=== PATIENT | female | born 1950 | race Caucasian/White ===

== ENCOUNTER 2020-01-18 17:15 | Inpatient (IN) | payer MEDICARE, OTHER ==
[2020-01-18 17:26] VITALS: BMI 27.4
[2020-01-18] MEDS ORDERED: SODIUM CHLORIDE 2,041 ML IV ONE (17:41)
[2020-01-18] MEDS ORDERED: ACETAMINOPHEN 1000 MG/100 ML VIAL (NON FORMULARY) IVPB ONE (17:41)
[2020-01-18] MEDS ORDERED: ACETAMINOPHEN INJECTION 100 ML IVPB ONE (17:56)
[2020-01-18] MEDS ORDERED: DEXAMETHASONE SOD PHOSPHATE 20 MG/5 ML VIAL IVPB ONE (18:10)
[2020-01-18] MEDS ORDERED: DEXAMETHASONE SOD PHOSPHATE 10 MG/1 ML VIAL ONE (18:24)
[2020-01-18] MEDS ORDERED: HYDROXYCHLOROQUINE SO4 200 MG TABLET (FP) PO ONE (18:27)
[2020-01-18] MEDS ORDERED: AZITHROMYCIN IVPB 500 MG in DEXTROSE 5%-WATER - 250 ML IVPB ONE (18:28)
[2020-01-18 19:10] LABS: VENOUS BASE EXCESS -0.8 meq/l (-2-2); VENOUS PC02 36.6 mmHg (38-52); VENOUS PH 7.41 (7.31-7.41); VENOUS PO2 51.9 mmHg (28-48)
[2020-01-18 19:12] LABS: BASO % 0.2 % (0-2.0); HEMATOCRIT 38.7 % (32.4-45.2); HEMOGLOBIN 12.7 GM/dL (10.7-15.3); LYMPH % 21.4 % (8-40); MCH 31.6 pg (25.7-33.7); MCHC 32.9 g/dl (32.0-36.0); MEAN CELL VOLUME 96.1 fl (80-96); MEAN PLT VOLUME 10.6 fl (7.5-11.1); MONO % 8.6 % (3.8-10.2); NEUT % 69.8 % (42.8-82.8); PLATELET COUNT 159 K/MM3 (134-434); RBC 4.02 M/mm3 (3.60-5.2); RDW 13.7 % (11.6-15.6); WHITE BLOOD COUNT 5.2 K/mm3 (4.0-10.0)
[2020-01-18 19:18] LABS: INR 1.13 (0.83-1.09); PROTHROMBIN TIME (PATIENT) 13.3 SEC (9.7-13.0)
[2020-01-18 19:21] LABS: ACTIVATED PTT 34.5 SECONDS (25.2-36.5)
[2020-01-18] MEDS ORDERED: AZITHROMYCIN IVPB 500 MG/250 ML BAG IVPB ONE (19:34)
[2020-01-18] MEDS ORDERED: HYDROXYCHLOROQUINE SO4 200 MG TABLET (FP) ONE (19:34)
[2020-01-18] MEDS: ALBUTEROL SO4 HFA INHALER IH PRN (19:35)
[2020-01-18 19:43] LABS: ALBUMIN 3.1 g/dl (3.4-5.0); ALK PHOS 152 U/L (45-117); ANION GAP 10 MMOL/L (8-16); BILIRUBIN,TOTAL 0.2 mg/dL (0.2-1); BLOOD UREA NITROGEN 12.9 mg/dL (7-18); CALCIUM 8.1 mg/dL (8.5-10.1); CHLORIDE 105 mmol/L (98-107); CO2 22 mmol/L (21-32); CREATININE 0.8 mg/dL (0.55-1.3); GLUCOSE,RANDOM 101 mg/dL (74-106); POTASSIUM 3.8 mmol/L (3.5-5.1); SGOT/AST 59 U/L (15-37); SGPT/ALT 37 U/L (13-61); SODIUM 137 mmol/L (136-145); TOT PROT 7.1 g/dl (6.4-8.2)
[2020-01-18] MEDS: DEXTROSE 5%-NORMAL SALINE 1,000 ML IV SCH (19:50)
[2020-01-18] MEDS ORDERED: AZTREONAM 1 GM VIAL (RESTRICTED TO ID) IVPB ONE (20:14)
[2020-01-18] MEDS ORDERED: AZTREONAM 1 GM VIAL (RESTRICTED TO ID) ONE (22:35)
[2020-01-18] MEDS ORDERED: VANCOMYCIN HCL 1,500 MG in DEXTROSE 5%-WATER - 250 ML IVPB SCH (22:45)
[2020-01-18 23:03] LABS: ARTERIAL BLD GAS O2 SATURATION 97.6 % (95-98); ARTERIAL BLOOD GAS BASE EXCESS -1.7 meq/l (-2-2); ARTERIAL BLOOD GAS PCO2 35.2 mmHg (35-45); ARTERIAL BLOOD GAS PO2 106 mmHg (80-100); ARTERIAL BLOOD GAS pH 7.41 (7.35-7.45)
[2020-01-18] MEDS ORDERED: VANCOMYCIN 1 GRAM (PRE-DOCKED) 1,000 MG/250 ML BAG IVPB ONE (23:23)
[2020-01-18] MEDS ORDERED: VANCOMYCIN 500 MG VIAL (RESTRICTED TO ID ONLY) ONE (23:23)
[2020-01-19 05:55] LABS: BASO % 0.2 % (0-2.0); HEMATOCRIT 36.8 % (32.4-45.2); HEMOGLOBIN 12.3 GM/dL (10.7-15.3); LYMPH % 28.6 % (8-40); MCH 31.9 pg (25.7-33.7); MCHC 33.3 g/dl (32.0-36.0); MEAN CELL VOLUME 95.9 fl (80-96); MEAN PLT VOLUME 9.8 fl (7.5-11.1); MONO % 5.4 % (3.8-10.2); NEUT % 65.8 % (42.8-82.8); PLATELET COUNT 161 K/MM3 (134-434); RBC 3.84 M/mm3 (3.60-5.2); RDW 13.5 % (11.6-15.6); WHITE BLOOD COUNT 3.5 K/mm3 (4.0-10.0)
[2020-01-19 06:28] LABS: ALBUMIN 2.8 g/dl (3.4-5.0); BILIRUBIN,TOTAL 0.3 mg/dL (0.2-1); BLOOD UREA NITROGEN 16.7 mg/dL (7-18); CALCIUM 7.5 mg/dL (8.5-10.1); PHOSPHOROUS 3.6 mg/dL (2.5-4.9); POTASSIUM 3.8 mmol/L (3.5-5.1); TOT PROT 6.8 g/dl (6.4-8.2)
[2020-01-19] MEDS ORDERED: HYDROXYCHLOROQUINE SO4 200 MG TABLET (FP) PO SCH ×2 (07:00→11:45)
[2020-01-19] MEDS ORDERED: AZITHROMYCIN 250 MG TABLET PO ONE (07:00)
[2020-01-19] MEDS ORDERED: ACETAMINOPHEN 325 MG TABLET (FP) ONE ×2 (08:24→23:15)
[2020-01-19] MEDS ORDERED: AZITHROMYCIN 250 MG TABLET ONE (08:25)
[2020-01-19] MEDS ORDERED: ENOXAPARIN NA (PORCINE) 40 MG/0.4 ML DISP.SYRIN SQ ONE (08:25)
[2020-01-19] MEDS: ACETAMINOPHEN 325 MG TABLET (FP) PO PRN (09:17)
[2020-01-19] MEDS: ENOXAPARIN NA (PORCINE) 40 MG/0.4 ML DISP.SYRIN SQ SCH (09:17)
[2020-01-19] MEDS ORDERED: MAGNESIUM SULF 50% (8.12 MEQ/2 ML-1 GM VIAL) IVPB ONE (10:22)
[2020-01-19] MEDS ORDERED: MAGNESIUM 1GM/D5W - 2 GM/200 ML IVPB IVPB ONE (11:25)
[2020-01-19] MEDS ORDERED: PT OWN MED DRAWER 7, Y5N ONE ×2 (11:25→16:16)
[2020-01-19] MEDS ORDERED: VANCOMYCIN HCL 1,500 MG in DEXTROSE 5%-WATER - 500 ML IVPB ONE (12:00)
[2020-01-19] MEDS ORDERED: AZTREONAM 1 GM VIAL (RESTRICTED TO ID) ONE ×2 (12:02→16:16)
[2020-01-19] MEDS ORDERED: HYDROXYCHLOROQUINE SO4 200 MG TABLET (FP) ONE ×2 (12:02→23:15)
[2020-01-19] MEDS ORDERED: VANCOMYCIN 1 GRAM (PRE-DOCKED) 1,000 MG/250 ML BAG IVPB ONE ×2 (12:02→22:46)
[2020-01-19] MEDS: AZTREONAM 2 GM in DEXTROSE 5%-WATER 100 ML IVPB SCH ×2 (12:08→18:13)
[2020-01-19] MEDS: VANCOMYCIN 1 GRAM (PRE-DOCKED) 1,000 MG/250 ML BAG IVPB SCH ×2 (12:45→23:16)
[2020-01-19 16:16] LABS: HIV INTERPRETATION NEGATIVE (NEGATIVE)
[2020-01-19] MEDS ORDERED: ATORVASTATIN CA 40 MG TABLET (FP) ONE (22:46)
[2020-01-19] MEDS: ATORVASTATIN CA 40 MG TABLET (FP) PO SCH (23:16)
[2020-01-19] MEDS: HYDROXYCHLOROQUINE SO4 200 MG TABLET (FP) PO SCH (23:29)
[2020-01-20] MEDS: DEXTROSE 5%-NORMAL SALINE 1,000 ML IV SCH ×2 (01:42→21:55)
[2020-01-20] MEDS: AZTREONAM 2 GM in DEXTROSE 5%-WATER 100 ML IVPB SCH ×3 (01:42→17:58)
[2020-01-20] MEDS: ACETAMINOPHEN 325 MG TABLET (FP) PO PRN ×2 (01:47→13:18)
[2020-01-20 08:12] LABS: BASO % 0.1 % (0-2.0); HEMATOCRIT 35.7 % (32.4-45.2); HEMOGLOBIN 12.1 GM/dL (10.7-15.3); MCH 32.2 pg (25.7-33.7); MCHC 33.7 g/dl (32.0-36.0); MEAN CELL VOLUME 95.5 fl (80-96); MEAN PLT VOLUME 10.2 fl (7.5-11.1); NEUT % 80.9 % (42.8-82.8); PLATELET COUNT 174 K/MM3 (134-434); RBC 3.74 M/mm3 (3.60-5.2); RDW 13.5 % (11.6-15.6); WHITE BLOOD COUNT 12.3 K/mm3 (4.0-10.0)
[2020-01-20 08:52] LABS: ALBUMIN 2.7 g/dl (3.4-5.0); BILIRUBIN,TOTAL 0.3 mg/dL (0.2-1); BLOOD UREA NITROGEN 15.4 mg/dL (7-18); CALCIUM 7.9 mg/dL (8.5-10.1); CREATININE 0.9 mg/dL (0.55-1.3); POTASSIUM 3.4 mmol/L (3.5-5.1); TOT PROT 6.5 g/dl (6.4-8.2)
[2020-01-20 09:28] LABS: ERYTHROCYTE SEDIMENTATION RATE 67 mm/hr (0-30)
[2020-01-20] MEDS ORDERED: POTASSIUM CHLORIDE TABS 20 MEQ TABLET.ER (FP) PO ONE (09:44)
[2020-01-20] MEDS: AZITHROMYCIN 250 MG TABLET PO SCH (10:21)
[2020-01-20] MEDS: HYDROXYCHLOROQUINE SO4 200 MG TABLET (FP) PO SCH ×2 (10:21→21:55)
[2020-01-20] MEDS ORDERED: PT OWN MED DRAWER 7, Y5N ONE ×2 (11:09→21:37)
[2020-01-20] MEDS: ENOXAPARIN NA (PORCINE) 40 MG/0.4 ML DISP.SYRIN SQ SCH (12:17)
[2020-01-20] MEDS: VANCOMYCIN 1 GRAM (PRE-DOCKED) 1,000 MG/250 ML BAG IVPB SCH (12:21)
[2020-01-20] MEDS: ATORVASTATIN CA 40 MG TABLET (FP) PO SCH (21:55)
[2020-01-21] MEDS: VANCOMYCIN 1 GRAM (PRE-DOCKED) 1,000 MG/250 ML BAG IVPB SCH ×3 (00:25→23:24)
[2020-01-21] MEDS: AZTREONAM 2 GM in DEXTROSE 5%-WATER 100 ML IVPB SCH ×3 (01:43→18:25)
[2020-01-21] MEDS: ACETAMINOPHEN 325 MG TABLET (FP) PO PRN ×3 (01:45→22:26)
[2020-01-21 08:18] LABS: BASO % 0.1 % (0-2.0); HEMATOCRIT 32.5 % (32.4-45.2); HEMOGLOBIN 11.2 GM/dL (10.7-15.3); LYMPH % 14.9 % (8-40); MCH 32.5 pg (25.7-33.7); MCHC 34.4 g/dl (32.0-36.0); MEAN CELL VOLUME 94.5 fl (80-96); PLATELET COUNT 145 K/MM3 (134-434); RBC 3.44 M/mm3 (3.60-5.2); RDW 13.5 % (11.6-15.6); WHITE BLOOD COUNT 10.2 K/mm3 (4.0-10.0)
[2020-01-21 08:41] LABS: ALBUMIN 2.2 g/dl (3.4-5.0); BILIRUBIN,TOTAL 0.5 mg/dL (0.2-1); BLOOD UREA NITROGEN 14.2 mg/dL (7-18); CALCIUM 7.4 mg/dL (8.5-10.1); CREATININE 0.8 mg/dL (0.55-1.3); MAGNESIUM 1.8 mg/dL (1.8-2.4); POTASSIUM 3.3 mmol/L (3.5-5.1); TOT PROT 5.9 g/dl (6.4-8.2)
[2020-01-21] MEDS: HYDROXYCHLOROQUINE SO4 200 MG TABLET (FP) PO SCH ×2 (10:09→22:27)
[2020-01-21] MEDS: AZITHROMYCIN 250 MG TABLET PO SCH (11:28)
[2020-01-21] MEDS: ENOXAPARIN NA (PORCINE) 40 MG/0.4 ML DISP.SYRIN SQ SCH (11:28)
[2020-01-21] MEDS ORDERED: PT OWN MED DRAWER 7, Y5N ONE (11:32)
[2020-01-21] MEDS: ATORVASTATIN CA 40 MG TABLET (FP) PO SCH (22:26)
[2020-01-22] MEDS ORDERED: PT OWN MED DRAWER 7, Y5N ONE ×2 (01:06→09:26)
[2020-01-22] MEDS: AZTREONAM 2 GM in DEXTROSE 5%-WATER 100 ML IVPB SCH ×3 (01:16→17:28)
[2020-01-22 06:58] LABS: BASO % 0.1 % (0-2.0); EOS % 0.1 % (0-4.5); HEMATOCRIT 33.3 % (32.4-45.2); HEMOGLOBIN 11.5 GM/dL (10.7-15.3); LYMPH % 12.3 % (8-40); MCH 32.5 pg (25.7-33.7); MCHC 34.5 g/dl (32.0-36.0); MEAN CELL VOLUME 94.3 fl (80-96); MEAN PLT VOLUME 10.3 fl (7.5-11.1); MONO % 5.8 % (3.8-10.2); NEUT % 81.7 % (42.8-82.8); PLATELET COUNT 135 K/MM3 (134-434); RBC 3.53 M/mm3 (3.60-5.2); RDW 13.5 % (11.6-15.6)
[2020-01-22 07:34] LABS: ALBUMIN 2.1 g/dl (3.4-5.0); BILIRUBIN,TOTAL 0.6 mg/dL (0.2-1); BLOOD UREA NITROGEN 11.3 mg/dL (7-18); CALCIUM 7.5 mg/dL (8.5-10.1); CREATININE 0.6 mg/dL (0.55-1.3); MAGNESIUM 1.9 mg/dL (1.8-2.4); TOT PROT 5.6 g/dl (6.4-8.2)
[2020-01-22 08:11] LABS: POTASSIUM 2.9 mmol/L (3.5-5.1)
[2020-01-22] MEDS: ENOXAPARIN NA (PORCINE) 40 MG/0.4 ML DISP.SYRIN SQ SCH (10:51)
[2020-01-22] MEDS: HYDROXYCHLOROQUINE SO4 200 MG TABLET (FP) PO SCH (10:51)
[2020-01-22] MEDS: AZITHROMYCIN 250 MG TABLET PO SCH (10:51)
[2020-01-22] MEDS: VANCOMYCIN 1 GRAM (PRE-DOCKED) 1,000 MG/250 ML BAG IVPB SCH (12:29)
[2020-01-22] MEDS: POTASSIUM CHLORIDE TABS 20 MEQ TABLET.ER (FP) PO SCH ×4 (16:30→21:02)
[2020-01-22] MEDS: DEXTROSE 5%-NORMAL SALINE 1,000 ML IV SCH ×2 (16:55→19:45)
[2020-01-22] MEDS ORDERED: LOPERAMIDE HCL 2 MG CAPSULE PO PRN (18:42)
[2020-01-22] MEDS: ACETAMINOPHEN 325 MG TABLET (FP) PO PRN (19:09)
[2020-01-22 20:08] LABS: CALCIUM 7.9 mg/dL (8.5-10.1); CREATININE 0.6 mg/dL (0.55-1.3); POTASSIUM 3.7 mmol/L (3.5-5.1)
[2020-01-22] MEDS: ATORVASTATIN CA 40 MG TABLET (FP) PO SCH (21:02)
[2020-01-23] MEDS ORDERED: PT OWN MED DRAWER 7, Y5N ONE ×4 (01:36→17:58)
[2020-01-23] MEDS: DEXTROSE 5%-NORMAL SALINE 1,000 ML IV SCH (01:58)
[2020-01-23] MEDS: AZTREONAM 2 GM in DEXTROSE 5%-WATER 100 ML IVPB SCH ×3 (01:58→17:41)
[2020-01-23 07:59] LABS: BASO % 0.2 % (0-2.0); EOS % 1.1 % (0-4.5); HEMATOCRIT 32.4 % (32.4-45.2); HEMOGLOBIN 11.2 GM/dL (10.7-15.3); LYMPH % 11.3 % (8-40); MCH 32.4 pg (25.7-33.7); MCHC 34.5 g/dl (32.0-36.0); MEAN CELL VOLUME 93.9 fl (80-96); MONO % 9.6 % (3.8-10.2); NEUT % 77.8 % (42.8-82.8); PLATELET COUNT 160 K/MM3 (134-434); RBC 3.45 M/mm3 (3.60-5.2); RDW 13.5 % (11.6-15.6); WHITE BLOOD COUNT 6.4 K/mm3 (4.0-10.0)
[2020-01-23 08:24] LABS: BILIRUBIN,TOTAL 0.4 mg/dL (0.2-1); BLOOD UREA NITROGEN 10.4 mg/dL (7-18); CALCIUM 7.9 mg/dL (8.5-10.1); CREATININE 0.6 mg/dL (0.55-1.3); POTASSIUM 3.8 mmol/L (3.5-5.1); TOT PROT 5.6 g/dl (6.4-8.2)
[2020-01-23] MEDS: ENOXAPARIN NA (PORCINE) 40 MG/0.4 ML DISP.SYRIN SQ SCH (09:48)
[2020-01-23] MEDS: ACETAMINOPHEN 325 MG TABLET (FP) PO PRN ×2 (10:17→18:00)
[2020-01-23] MEDS: VANCOMYCIN 1 GRAM (PRE-DOCKED) 1,000 MG/250 ML BAG IVPB SCH (19:51)
[2020-01-23] MEDS: ATORVASTATIN CA 40 MG TABLET (FP) PO SCH (21:32)
[2020-01-23] MEDS: HYDROXYCHLOROQUINE SO4 200 MG TABLET (FP) PO SCH (21:32)
[2020-01-23] MEDS ORDERED: HYDROXYCHLOROQUINE SO4 200 MG TABLET (FP) PO SCH (22:00)
[2020-01-24] MEDS ORDERED: PT OWN MED DRAWER 7, Y5N ONE ×5 (01:06→17:43)
[2020-01-24] MEDS: AZTREONAM 2 GM in DEXTROSE 5%-WATER 100 ML IVPB SCH ×3 (01:13→17:49)
[2020-01-24] MEDS: ACETAMINOPHEN 325 MG TABLET (FP) PO PRN ×2 (01:13→14:26)
[2020-01-24 07:29] LABS: BASO % 0.2 % (0-2.0); EOS % 2.2 % (0-4.5); HEMATOCRIT 33.2 % (32.4-45.2); HEMOGLOBIN 11.2 GM/dL (10.7-15.3); LYMPH % 14.1 % (8-40); MCHC 33.8 g/dl (32.0-36.0); MEAN CELL VOLUME 94.6 fl (80-96); MEAN PLT VOLUME 9.9 fl (7.5-11.1); NEUT % 73.5 % (42.8-82.8); PLATELET COUNT 189 K/MM3 (134-434); RBC 3.51 M/mm3 (3.60-5.2); RDW 13.6 % (11.6-15.6); WHITE BLOOD COUNT 6.2 K/mm3 (4.0-10.0)
[2020-01-24 08:04] LABS: ALBUMIN 2.1 g/dl (3.4-5.0); BILIRUBIN,TOTAL 0.8 mg/dL (0.2-1); BLOOD UREA NITROGEN 11.4 mg/dL (7-18); CALCIUM 8.1 mg/dL (8.5-10.1); CREATININE 0.6 mg/dL (0.55-1.3); POTASSIUM 3.5 mmol/L (3.5-5.1); TOT PROT 5.9 g/dl (6.4-8.2)
[2020-01-24] MEDS: HYDROXYCHLOROQUINE SO4 200 MG TABLET (FP) PO SCH ×2 (10:50→21:00)
[2020-01-24] MEDS: ENOXAPARIN NA (PORCINE) 40 MG/0.4 ML DISP.SYRIN SQ SCH (10:50)
[2020-01-24] MEDS: VANCOMYCIN 1 GRAM (PRE-DOCKED) 1,000 MG/250 ML BAG IVPB SCH (20:31)
[2020-01-24] MEDS: ATORVASTATIN CA 40 MG TABLET (FP) PO SCH (21:00)
[2020-01-25] MEDS: AZTREONAM 2 GM in DEXTROSE 5%-WATER 100 ML IVPB SCH ×2 (02:45→11:01)
[2020-01-25 07:35] LABS: BASO % 0.3 % (0-2.0); EOS % 2.2 % (0-4.5); HEMATOCRIT 31.1 % (32.4-45.2); HEMOGLOBIN 10.8 GM/dL (10.7-15.3); LYMPH % 13.7 % (8-40); MCH 32.6 pg (25.7-33.7); MCHC 34.9 g/dl (32.0-36.0); MEAN CELL VOLUME 93.6 fl (80-96); MEAN PLT VOLUME 9.6 fl (7.5-11.1); MONO % 14.8 % (3.8-10.2); PLATELET COUNT 250 K/MM3 (134-434); RBC 3.32 M/mm3 (3.60-5.2); RDW 13.1 % (11.6-15.6); WHITE BLOOD COUNT 5.7 K/mm3 (4.0-10.0)
[2020-01-25 08:25] LABS: BILIRUBIN,TOTAL 0.4 mg/dL (0.2-1); BLOOD UREA NITROGEN 9.8 mg/dL (7-18); CALCIUM 8.3 mg/dL (8.5-10.1); CREATININE 0.6 mg/dL (0.55-1.3); POTASSIUM 3.3 mmol/L (3.5-5.1); TOT PROT 5.9 g/dl (6.4-8.2)
[2020-01-25] MEDS: ENOXAPARIN NA (PORCINE) 40 MG/0.4 ML DISP.SYRIN SQ SCH (11:00)
[2020-01-25] MEDS: ALBUTEROL SO4 HFA INHALER IH PRN (11:01)
[2020-01-25] MEDS: HYDROXYCHLOROQUINE SO4 200 MG TABLET (FP) PO SCH (11:01)
[2020-01-25] MEDS ORDERED: POTASSIUM CHLORIDE TABS 20 MEQ TABLET.ER (FP) PO ONE (11:15)
[2020-01-25] MEDS ORDERED: ALBUTEROL SO4 HFA INHALER IH PRN (17:56)
[2020-01-25] MEDS ORDERED: LOPERAMIDE HCL 2 MG CAPSULE PO PRN (17:56)
[2020-01-25] MEDS: ACETAMINOPHEN 325 MG TABLET (FP) PO PRN (23:04)
[2020-01-25] MEDS: ATORVASTATIN CA 40 MG TABLET (FP) PO SCH (23:04)
[2020-01-26 09:36] LABS: BASO % 0.5 % (0-2.0); EOS % 2.1 % (0-4.5); HEMATOCRIT 34.2 % (32.4-45.2); HEMOGLOBIN 11.6 GM/dL (10.7-15.3); LYMPH % 21.5 % (8-40); MCHC 34.1 g/dl (32.0-36.0); MEAN CELL VOLUME 94.1 fl (80-96); MEAN PLT VOLUME 9.5 fl (7.5-11.1); MONO % 14.5 % (3.8-10.2); NEUT % 61.4 % (42.8-82.8); PLATELET COUNT 343 K/MM3 (134-434); RBC 3.63 M/mm3 (3.60-5.2); RDW 13.3 % (11.6-15.6); WHITE BLOOD COUNT 6.8 K/mm3 (4.0-10.0)
[2020-01-26] MEDS: ENOXAPARIN NA (PORCINE) 40 MG/0.4 ML DISP.SYRIN SQ SCH (09:36)
[2020-01-26 10:09] LABS: ALBUMIN 2.3 g/dl (3.4-5.0); BILIRUBIN,TOTAL 1.4 mg/dL (0.2-1); BLOOD UREA NITROGEN 10.4 mg/dL (7-18); CALCIUM 8.6 mg/dL (8.5-10.1); CREATININE 0.6 mg/dL (0.55-1.3); POTASSIUM 3.6 mmol/L (3.5-5.1); TOT PROT 6.6 g/dl (6.4-8.2)
[2020-01-26] MEDS: ACETAMINOPHEN 325 MG TABLET (FP) PO PRN (14:06)
[2020-01-26 18:28] LABS: ALBUMIN 2.5 g/dl (3.4-5.0); BLOOD UREA NITROGEN 12.4 mg/dL (7-18); CALCIUM 8.9 mg/dL (8.5-10.1); CREATININE 0.7 mg/dL (0.55-1.3); POTASSIUM 3.8 mmol/L (3.5-5.1)
[2020-01-26] MEDS: ATORVASTATIN CA 40 MG TABLET (FP) PO SCH (21:23)
[2020-01-27] MEDS: ENOXAPARIN NA (PORCINE) 40 MG/0.4 ML DISP.SYRIN SQ SCH (09:37)
[2020-01-27] MEDS: ATORVASTATIN CA 40 MG TABLET (FP) PO SCH (21:43)
[2020-01-27] MEDS: ACETAMINOPHEN 325 MG TABLET (FP) PO PRN (21:43)
[2020-01-28] MEDS: ENOXAPARIN NA (PORCINE) 40 MG/0.4 ML DISP.SYRIN SQ SCH (10:17)
[2020-01-28] MEDS: ACETAMINOPHEN 325 MG TABLET (FP) PO PRN (20:37)
[2020-01-28] MEDS: ATORVASTATIN CA 40 MG TABLET (FP) PO SCH (21:16)
[2020-01-29] MEDS: ENOXAPARIN NA (PORCINE) 40 MG/0.4 ML DISP.SYRIN SQ SCH ×2 (08:29→09:13)
[2020-01-29 09:13] LABS: BASO % 1.1 % (0-2.0); EOS % 1.8 % (0-4.5); HEMATOCRIT 34.4 % (32.4-45.2); HEMOGLOBIN 11.8 GM/dL (10.7-15.3); LYMPH % 33.4 % (8-40); MCH 32.4 pg (25.7-33.7); MCHC 34.1 g/dl (32.0-36.0); MEAN CELL VOLUME 94.9 fl (80-96); MEAN PLT VOLUME 9.8 fl (7.5-11.1); MONO % 14.6 % (3.8-10.2); NEUT % 49.1 % (42.8-82.8); PLATELET COUNT 436 K/MM3 (134-434); RBC 3.62 M/mm3 (3.60-5.2); RDW 13.4 % (11.6-15.6); WHITE BLOOD COUNT 4.9 K/mm3 (4.0-10.0)
[2020-01-29 10:03] LABS: ALBUMIN 2.5 g/dl (3.4-5.0); BILIRUBIN,TOTAL 0.5 mg/dL (0.2-1); BLOOD UREA NITROGEN 12.7 mg/dL (7-18); CALCIUM 8.6 mg/dL (8.5-10.1); CREATININE 0.6 mg/dL (0.55-1.3); MAGNESIUM 2.4 mg/dL (1.8-2.4); PHOSPHOROUS 3.6 mg/dL (2.5-4.9); POTASSIUM 3.9 mmol/L (3.5-5.1); TOT PROT 6.8 g/dl (6.4-8.2)
[2020-01-29] MEDS: ACETAMINOPHEN 325 MG TABLET (FP) PO PRN (20:39)
[2020-01-29] MEDS: ATORVASTATIN CA 40 MG TABLET (FP) PO SCH (21:48)
[2020-01-30 07:26] LABS: BASO % 0.8 % (0-2.0); EOS % 1.8 % (0-4.5); HEMATOCRIT 33.1 % (32.4-45.2); HEMOGLOBIN 11.3 GM/dL (10.7-15.3); LYMPH % 36.8 % (8-40); MCH 32.3 pg (25.7-33.7); MCHC 34.3 g/dl (32.0-36.0); MEAN CELL VOLUME 94.4 fl (80-96); MEAN PLT VOLUME 9.4 fl (7.5-11.1); MONO % 13.9 % (3.8-10.2); NEUT % 46.7 % (42.8-82.8); PLATELET COUNT 443 K/MM3 (134-434); RDW 13.2 % (11.6-15.6); WHITE BLOOD COUNT 4.9 K/mm3 (4.0-10.0)
[2020-01-30 07:54] LABS: ALBUMIN 2.5 g/dl (3.4-5.0); BILIRUBIN,TOTAL 0.6 mg/dL (0.2-1); BLOOD UREA NITROGEN 15.4 mg/dL (7-18); CALCIUM 8.8 mg/dL (8.5-10.1); CREATININE 0.7 mg/dL (0.55-1.3); TOT PROT 6.6 g/dl (6.4-8.2)
[2020-01-30] MEDS: ENOXAPARIN NA (PORCINE) 40 MG/0.4 ML DISP.SYRIN SQ SCH (10:02)
[2020-01-30] MEDS: ACETAMINOPHEN 325 MG TABLET (FP) PO PRN ×2 (11:55→21:45)
[2020-01-30] MEDS: LIDOCAINE 5% TOPICAL PATCH TP SCH (12:42)
[2020-01-30] MEDS: ATORVASTATIN CA 40 MG TABLET (FP) PO SCH (21:45)
[2020-01-30] MEDS: LIDOCAINE PATCH REMOVAL MC SCH (21:45)
[2020-01-31 07:22] LABS: BASO % 1.2 % (0-2.0); EOS % 1.1 % (0-4.5); HEMATOCRIT 33.7 % (32.4-45.2); HEMOGLOBIN 11.3 GM/dL (10.7-15.3); LYMPH % 36.3 % (8-40); MCH 32.3 pg (25.7-33.7); MCHC 33.6 g/dl (32.0-36.0); MEAN CELL VOLUME 96.2 fl (80-96); MEAN PLT VOLUME 9.8 fl (7.5-11.1); MONO % 11.1 % (3.8-10.2); NEUT % 50.3 % (42.8-82.8); PLATELET COUNT 409 K/MM3 (134-434); RDW 13.6 % (11.6-15.6); WHITE BLOOD COUNT 5.2 K/mm3 (4.0-10.0)
[2020-01-31 07:47] LABS: ALBUMIN 2.6 g/dl (3.4-5.0); BILIRUBIN,TOTAL 0.3 mg/dL (0.2-1); BLOOD UREA NITROGEN 17.2 mg/dL (7-18); CALCIUM 8.6 mg/dL (8.5-10.1); CREATININE 0.7 mg/dL (0.55-1.3); MAGNESIUM 2.4 mg/dL (1.8-2.4); TOT PROT 6.6 g/dl (6.4-8.2)
[2020-01-31] MEDS: LIDOCAINE 5% TOPICAL PATCH TP SCH (09:10)
[2020-01-31] MEDS: ENOXAPARIN NA (PORCINE) 40 MG/0.4 ML DISP.SYRIN SQ SCH (09:11)
[2020-01-31] MEDS: LIDOCAINE PATCH REMOVAL MC SCH (21:02)
[2020-01-31] MEDS: ATORVASTATIN CA 40 MG TABLET (FP) PO SCH (21:03)
[2020-02-01] MEDS: ACETAMINOPHEN 325 MG TABLET (FP) PO PRN (02:59)
[2020-02-01 11:12] VITALS: BP 129/55; PULSE 72; TEMP 98.5
== END 2020-02-01 11:21 | disposition home or self-care (01) | DRG 720 ==
LOC: JER 17:15 → JERBED 20:08 → J4S 01-20 00:36 → J8W 01-25 17:38 → J4S 01-29 21:14
PROVIDERS: ADMIT Internal Medicine; ATTEND Nurse Practitioner Family
DX: A41.89 Other specified sepsis (principal); U07.1 COVID-19; J12.89 Other viral pneumonia; R19.7 Diarrhea, unspecified; E87.6 Hypokalemia; R53.1 Weakness; R50.9 Fever, unspecified; D72.829 Elevated white blood cell count, unspecified; E78.00 Pure hypercholesterolemia, unspecified; J96.01 Acute respiratory failure with hypoxia; R94.31 Abnormal electrocardiogram [ECG] [EKG]; R00.0 Tachycardia, unspecified
CPT/HCPCS: 36415; 36600; 71045-TC-FY; 71250-TC; 80048; 80053; 82550; 82553; 82728; 82803; 82962; 83605; 83615; 83735; 83880; 84100; 84439; 84443; 84481; 84484; 85025; 85610; 85651; 85730; 86140; 86850; 86900; 86901; 87040; 87045; 87046; 87070; 87205; 87324; 87389; 87449; 87798; 87804; 87807; 87899; 93005; 93010; 94761; 99285-25; G0480; J0131; U0002